=== PATIENT | female | born 1945 | race Caucasian/White ===

== ENCOUNTER 2018-10-15 02:00 | Emergency (ER) | payer MEDICARE, OTHER ==
[~2018-10-15] VITALS: Ht 162.6 cm; Wt 100.0 kg
[2018-10-15] MEDS ORDERED: CLEO300C2 PO (03:34)
[2018-10-15] MEDS ORDERED: traMADol 50 MG TAB PO ONE (03:45)
[2018-10-15 04:02] VITALS: BP 172/80
== END 2018-10-15 04:04 | disposition home or self-care (01) ==
LOC: M ED 02:00
DX: K02.9 Dental caries, unspecified (principal); Z91.048 Other nonmedicinal substance allergy status

== ENCOUNTER → 2020-10-03 | Outpatient (CLI) | payer MEDICARE ==
[~2020-10-03] MED LIST: CLEO300C2 PO
--- NOTE | 2020-10-03 15:46 | REPMRS ---
Patient History The patient states she has not had a clinical breast exam in over a year. Patient is postmenopausal. No known family history of cancer. Reductions of both breasts, 2000. No Hormone Replacement Therapy Patient states no breast complaints today. Patient has signed MRS History Sheet. Digital Woman Screen Mammo: October 03, 2020 - Exam #: [id number] Bilateral CC and MLO view(s) were taken. Technologist: Eli Hills, Technologist Prior study comparison: September 02, 2015, bilateral digital mammo screening bilat, performed at [facility]. August 10, 2014, bilateral digital mammo screening bilat, performed at [facility]. January 17, 2013, bilateral digital mammo screening bilat, performed at [facility]. FINDINGS: There are scattered fibroglandular densities. The Volpara volumetric breast density category is:B. There are multiple calcified nodules consistent with fat necrosis bilaterally as on prior studies on the right, these are more densely calcified. On the left, they are smaller and less heavily calcified.. In any event, they are not suspicious. A pacemaker power plant is noted projecting over the left axilla. There has been no change in the appearance of the mammogram from the prior studies. There is a mild amount of scattered fibroglandular density which is fairly symmetric. There is no interval development of dominant mass, architectural distortion, or grouped microcalcification suggestive of malignancy. 3-D tomosynthesis shows no additional findings. Assessment: BI-RADS/ACR category 2 mammogram. Benign Findings. Recommendation Routine screening mammogram of both breasts in 1 year (for women over age 40). This patient's [facility] Lifetime Breast Cancer Risk is estimated at 4.0 %. This mammogram was interpreted with the aid of an FDA-approved computer-aided dectection system. Electronically Signed By: Devon Sauceda MD 10/03/20 [id number]
--- NOTE | 2020-10-03 16:07 | DEXAMM ---
INDICATION: M89.9 DISORDER OF BONE. COMPARISON: Comparison study June 13, 2018 and September 02, 2015. TECHNIQUE: Bone density was measured using dual-energy x-ray absorptionmetry (DEXA). FINDINGS: AP SPINE L1-L4 BMD 1.122 g/cm2 Young Adult T-Score -0.6 Age Matched Z-Score 1.1. LT FEMUR, TOTAL BMD 0.864 g/cm2 Young Adult T-Score -1.1 Age Matched Z-Score 0.5. LT NECK BMD 0.912 g/cm2 Young Adult T-Score -0.9 Age Matched Z-Score 0.9. RT FEMUR, TOTAL BMD 0.888 g/cm2 Young Adult T-Score -1.0 Age Matched Z-Score 0.7. RT NECK BMD 0.889 g/cm2 Young Adult T-Score -1.1 Age Matched Z-Score 0.8. IMPRESSION: There is normal bone density of the spine. There is low bone density of the left hip. There is low bone density of the right hip. The density of the spine has increased 7.3% since the initial exam on September 02, 2015. The density of the spine decreased 6.5% since most recent exam on June 13, 2018. The density of the left hip has increased 21.3% since initial exam on September 02, 2015. The density of the left hip has increased 5.8% since most recent exam on June 13, 2018. The density of the right hip has decreased 9.4% since the most recent exam on June 13, 2018. FOLLOW-UP: Recommendation for the next bone density exam: 2 years. <Electronically signed by Devon Sauceda > 10/03/20 [id number]
== END ==
LOC: M WHC 14:09
PROVIDERS: ATTEND Physician Assistant Medical
DX: Z12.31 Encounter for screening mammogram for malignant neoplasm of breast (principal); M81.0 Age-related osteoporosis without current pathological fracture

== ENCOUNTER → 2020-10-15 | Outpatient (CLI) | payer MEDICARE ==
--- NOTE | 2020-10-15 13:49 | REP ---
INDICATION: DYSPNEA, UNSPECIFIED COMPARISON: 07/11/2012 TECHNIQUE: PA and lateral. FINDINGS: The mediastinum and cardiac silhouette are normal. Two lead pacemaker in satisfactory position. The lung ramirez are clear and without acute consolidation, effusion, or pneumothorax. The skeletal structures are intact and normal. IMPRESSION: No acute cardiopulmonary process. <Electronically signed by Danish Villalobos > 10/15/20 [id number]
== END ==
LOC: M RAD 10:34
PROVIDERS: ATTEND Family Medicine
DX: R06.00 Dyspnea, unspecified (principal)

== ENCOUNTER → 2020-11-14 | Outpatient (CLI) | payer MEDICARE | LOC: M CARPUL 10:18 | PROVIDERS: ATTEND Nurse Practitioner Adult Health | DX: G47.33 Obstructive sleep apnea (adult) (pediatric) (principal) ==

== ENCOUNTER → 2020-12-11 | Outpatient (CLI) | payer MEDICARE ==
[~2020-12-11] MED LIST changes: +METHACHOLINE KIT (J7674) INH ONE
--- NOTE | 2020-12-11 12:38 | PFTRPT ---
Height: 61.00 Inches Weight: 215.00 Lbs BSA: 1.95 Diagnosis: R06.02 DATE: 12/11/2020 ORDERED BY: Monika Rodriguez APN QUALITY: Study of excellent technical quality. PROCEDURE: Under protocol, methacholine was administered. A dose of 2.5 mg or 13.875 CDUs, a 24% decline in the FEV1 was noted. PC of 0.15 is significant. Flow rates did return to baseline post bronchodilator administration. IMPRESSION: Positive methacholine challenge study. MTDD
== END ==
LOC: M CARPUL 11:35
PROVIDERS: ATTEND Nurse Practitioner Adult Health
DX: R06.02 Shortness of breath (principal)
CPT/HCPCS: 94070; 95070; J7674